=== PATIENT | female | born 1960 | race African-American/Black ===

== ENCOUNTER → 2018-06-25 16:36 | Outpatient (CLI) | payer OTHER, SELFPAY | PROVIDERS: PCP Family Medicine; Visit Provider Internal Medicine Cardiovascular Disease | DX: G47.33 Obstructive sleep apnea (adult) (pediatric) (principal); I10 Essential (primary) hypertension; R06.83 Snoring | CPT/HCPCS: 95806 ==

== ENCOUNTER → 2018-10-26 10:51 | Outpatient (CLI) | payer OTHER, SELFPAY ==
--- NOTE | 2018-10-26 10:53 | MM_ITS ---
MM Dig screening mamm BI w/CAD CAD Screening COMPARISON: Digital mammograms with CAD 10/06/2016 and 09/30/2015 INDICATION: There is no personal or family history of breast cancer TECHNIQUE: Standard CC and MLO images were obtained. R2 CAD reviewed. FINDINGS: Scattered fibroglandular densities are seen throughout both breasts. There is a stable benign-appearing nodular density near the axillary tail right breast. There is no suspicious lesion and there are no suspicious microcalcifications. IMPRESSION: Fibrofatty parenchyma with no suspicious lesion seen BI-RADS Category: 2 Benign Finding(s) RECOMMENDED FOLLOW-UP: 1YR - 1 YEAR FOLLOW-UP (A letter has been sent to the patient regarding results of the study.)
== END ==
PROVIDERS: PCP Family Medicine; Visit Provider Family Medicine
DX: Z12.31 Encounter for screening mammogram for malignant neoplasm of breast (principal)
CPT/HCPCS: 77067

== ENCOUNTER → 2019-08-08 09:38 | Outpatient (CLI) | payer OTHER, SELFPAY ==
--- NOTE | 2019-08-08 09:48 | XR_ITS ---
PROCEDURE: XR SHOULDER RT MIN 2V CLINICAL INDICATION: Rt shoulder pain COMPARISON: [id number] VIEWS from 03/22/2017 FINDINGS: There are osteoarthritic changes at the acromioclavicular joint with mild spurring along the inferior aspect of the distal chromium. There is subacromial stenosis new with mild osteoarthritic change of the glenohumeral joint. No fracture or dislocation. No lytic or blastic IMPRESSION: Change. Acromioclavicular arthropathy with subacromial stenosis and mild osteoarthritis of the glenohumeral joint Dictated by: Richard Gamble MD 08/08/2019 17:57 Electronically signed by Richard Gamble MD in [place] 08/08/2019 17:57
== END ==
PROVIDERS: PCP Family Medicine; Visit Provider Orthopaedic Surgery
DX: G89.29 Other chronic pain (principal); M25.511 Pain in right shoulder
CPT/HCPCS: 73030

== ENCOUNTER → 2019-08-15 10:08 | Outpatient (CLI) | payer OTHER, SELFPAY ==
--- NOTE | 2019-08-15 10:10 | MR_ITS ---
PROCEDURE: MR SHOULDER RT WO CON CLINICAL INDICATION: rule out rotator cuff tear Right shoulder pain, injury with pain COMPARISON: XR SHOULDER RT MIN 2V from 08/08/2019 TECHNIQUE: Routine multiplanar multi echo sequences are performed without gadolinium enhancement. FINDINGS: Motion artifact somewhat obscures fine detail. There is complete tear of the supraspinatus and infraspinatus tendons with retraction of the musculotendinous fibers with high riding humeral head, severe subacromial stenosis and mild osteoarthritic change of the acromioclavicular joint. Shoulder joint effusion is present. No obvious labral tear. Bicipital tendon is in place. The subscapularis and teres minor tendons are intact.. No fracture apparent. IMPRESSION: Complete tear of the supraspinatus and infraspinatus tendons with retraction of the musculotendinous fibers with shoulder joint effusion Dictated by: Richard Gamble MD 08/16/2019 16:29 Electronically signed by Richard Gamble MD in [place] 08/17/2019 07:10
== END ==
PROVIDERS: PCP Family Medicine; Visit Provider Orthopaedic Surgery
DX: M25.511 Pain in right shoulder (principal); G89.29 Other chronic pain; S49.91XA Unspecified injury of right shoulder and upper arm, initial encounter
CPT/HCPCS: 73221

== ENCOUNTER → 2019-10-08 15:07 | Outpatient (CLI) | payer OTHER, SELFPAY ==
[2019-10-08 15:35] LABS: Basophils % 0.7 % (0.1-2.0); Eosinophils # 0.2 K/mm3 (0.0-0.4); Eosinophils % 3.5 % (0.1-12.0); Hematocrit 38.6 % (37.0-47.0); Hemoglobin 12.6 g/dL (12.2-16.2); Lymphocytes # 1.6 K/mm3 (0.7-4.5); Lymphocytes % 27.2 % (10-50); Mean Corpuscular HGB Conc 32.7 g/dL (31.8-35.4); Mean Corpuscular Hemoglobin 28.7 pg (27.0-31.2); Mean Corpuscular Volume 87.7 fl (81-99); Mean Platelet Volume 7.8 fl (7.4-10.4); Monocytes # 0.3 K/mm3 (0.1-1.0); Monocytes % 4.8 % (1.7-9.3); Neutrophils # 3.7 K/mm3 (1.8-7.8); Neutrophils % 63.8 % (37.0-80.0); Platelet Count 360 K/mm3 (142-424); Red Cell Distribution Width 13.8 % (11.5-17.5); White Blood Count 5.8 K/mm3 (4.8-10.8)
[2019-10-08 17:36] LABS: Thyroid Stimulating Hormone 1.18 uIU/ml (0.358-3.740)
[2019-10-10 10:20] LABS: Creatinine, Urine 29.1 mg/dL (Not Estab.)
[2019-10-10 13:18] LABS: Microalbumin, Urine <3.0 ug/mL (Not Estab.)
== END ==
PROVIDERS: Visit Provider Family Medicine
DX: I10 Essential (primary) hypertension (principal); R68.89 Other general symptoms and signs
CPT/HCPCS: 36415; 82043; 82570; 84443; 85025

== ENCOUNTER → 2019-10-17 12:50 | Outpatient (CLI) | payer OTHER, SELFPAY ==
--- NOTE | 2019-10-17 12:52 | CT_ITS ---
PROCEDURE: CT HEART W CALCIUM SCORE CLINICAL HISTORY: HTN, HYPERCHOL;ESTEROLEMIA COMPARISON: CXR CHEST(2 VIEWS-NOT PORTABLE) from 01/13/2014 TECHNIQUE: Axial images obtained with sagittal and coronal reformats. All CT scans at the facility use one or more dose reduction, viz: automated exposure control, ma/kV adjustment per patient size (including targeted exams where dose is matched to indication, i.e. head), or iterative reconstruction technique. FINDINGS: Coronary artery calcium score is 3 indicating minimal plaque burden with low cardiovascular disease risk. Incidental findings include mild scarring or atelectatic changes in the right middle lobe in lung bases. Calcified nodes are present in the subcarinal area and right hilum. There are degenerative changes in the spine IMPRESSION: Minimal plaque burden with low cardiovascular disease risk Dictated by: Richard Gamble MD 10/18/2019 05:23 Electronically signed by Richard Gmable MD in [place] 10/18/2019 05:23
== END ==
PROVIDERS: PCP Family Medicine; Visit Provider Family Medicine
DX: Z13.6 Encounter for screening for cardiovascular disorders (principal); E78.00 Pure hypercholesterolemia, unspecified; I10 Essential (primary) hypertension
CPT/HCPCS: 75571

== ENCOUNTER → 2019-10-28 08:19 | Outpatient (CLI) | payer OTHER, SELFPAY ==
--- NOTE | 2019-10-28 08:23 | MM_ITS ---
PROCEDURE: MM DIG SCREENING MAMM BI W/CAD Patient Age:59Y CLINICAL INDICATION: SCREENING a no hormones but no new complaints. Noncontributory family history the. COMPARISON: DIGMAMMS MAMMOGRAM SCREEN-[employer] OPERATOR N/C from 01/26/2009 DIGMAMMS MAMMOGRAM SCREEN-GAS PLANT OPERATOR N/C from 03/12/2010 DMSB DIGITAL MAMM-SCREEN BILATERAL from 03/14/2011 DMDXUWAL DIG MAMM-DX UNIL LT W/ADD VIEW from 09/14/2011 DMSB DIGITAL MAMM-SCREEN BILATERAL from 09/12/2012 DMSB DIG MAMM-SCREEN BERONICA from 09/12/2013 DMSB DIG MAMM-SCREEN BERONICA from 09/24/2014 DMSB DIG MAMM-SCREEN BERONICA from 09/30/2015 DMSB DIG MAMM-SCREEN BERONICA from 10/06/2016 [facility] MM Dig screening mamm BI w/CAD from 10/26/2018 TECHNIQUE: Standard CC and MLO images were obtained. R2 CAD reviewed. Additional axillary CC views bilaterally., and additional MLO view right breast included FINDINGS: The minimal residual fibroglandular elements but overall moderate lower density breast. Similar architecture and appearance to previous studies with no dominant nor suspicious mass but no suspicious calcifications. Stable breast patterns were compared to multiple previous studies with no new areas of significant concern either breast. the CAD computer review highlights no areas of significant concern either Right breast stable intramammary node deep axillary right breast . Left breast no significant new findings Bilateral follow-up 1 year recommended IMPRESSION: Stable bilateral mammogram. A bilateral follow-up 1 year recommended BI-RAD Category: 1 Negative FOLLOW-UP: 1YR 1 Year Follow-up (A letter has been sent to the patient regarding results of the study.) Dictated by: Neftali Fiore MD 10/29/2019 08:43 Electronically signed by Neftali Fiore MD in [place] 10/29/2019 08:43
== END ==
PROVIDERS: PCP Family Medicine; Visit Provider Family Medicine
DX: Z12.31 Encounter for screening mammogram for malignant neoplasm of breast (principal)
CPT/HCPCS: 77067

== ENCOUNTER 2019-11-15 15:00 | Outpatient (RCR) | payer OTHER, SELFPAY ==
--- NOTE | 2019-08-23 09:51 | HMH.OTOPEV ---
OT Inpatient Evaluation Rehab OT Outpatient Eval Start: 08/23/19 09:39 Freq: Status: Active Protocol: Document 08/23/19 09:40 RMARSHALL (Rec: 08/23/19 09:51 [id number] Electronically Signed By Aldair Vuong OT 08/23/19 09:40 Outpatient Therapy Subjective History Subjective History Pt is a 58 year old female who reports to therapy for initial evaluation to right shoulder. Pt has been seen by ortho and had both x-rays and MRI completed to right shoulder. MRI showed a complete tear with retraction at the supraspinatus and infraspinatus. Pt does demonstrate with decreased AROM and strength at right shoulder. Pt will continue to be seen twice a week in order to address all deficits. Chief Complaint Pain,Stiff,Weakness Symptom Type Ache,Throb,Sharp Symptoms Relieved By Rest/Positioning Symptoms Aggravated By Physical Activity,Twisting, Lifting Prior Functional Limitations None Current Functional Limitations Reaching,Lifting,Sleeping, Recreation Activity Symptom Description Intermittent,Activity Dependent Level of pain today (0-10) 0 Pain scale - at its best (0-10) 0 Pain scale - at its worst (0-10) 5 Shoulder/Elbow Eval Shoulder Objective Measurements Shoulder ROM Right Shoulder Abduction Active Range of 80 degrees Motion (degrees) Shoulder Flexion Active Range of Motion 100 degrees (degrees) Query Text: Shoulder External Rotation Active Range 35 degrees of Motion (degrees) Shoulder Internal Rotation Active Range 40 degrees of Motion (degrees) pain with active ROM shoulder exam right standard pain with passive ROM shoulder exam right standard decreased ROM shoulder exam standard right Shoulder MMT Shoulder Abduction Strength Grade 3 Fair Shoulder Extension Strength Grade 3 Fair Shoulder Flexion Strength Grade 3 Fair Shoulder External Rotation Strength 3 Fair Grade Shoulder Internal Rotation Strength 3 Fair Grade Shoulder Strength Patient Testing Sitting Position Elbow Objective Measurements OT Outpatient Assessment Impairments Problems/Impairments Pal
--- NOTE | 2019-10-01 16:23 | HMH.RHREAS ---
Rehab Reassessment Rehab OP Re-assessment Start: 10/01/19 15:31 Freq: Status: Active Protocol: Document 10/01/19 15:31 KANDICE (Rec: 10/01/19 16:23 RMCHRISTINAHALL [id number]) Electronically Signed By Aldair Vuong OT 10/01/19 15:31 Rehab Re-assessment Subjective Subjective I do see a big difference in it. Objective Objective Notes Pt continutes to be seen twice a week in order to address all right shoulder deficits. Pt engages in AROM/AAROM/ Strengthening exercises each session. Pt is also passively ranged in supine in flexion, abduction, ER, and IR at each session. Modalities are provided in order to decrease pain/inflammation. Assessment Progress Assessment Slower Than Expected Assessment Notes Pt does demonstrate improvement in AROM at right shoulder. However, strength remains fairly the same since initial evaluation. Pt does inform thearpy she is able to complete several different daily tasks that she was unable to complete prior to beginning therapy. Current R shoulder AROM Flex: 110 degrees Abd: 100 degrees ER: 58 degrees IR: 60 degrees Current MMT R shoulder Flex: 3 Abd: 3 ER: 3 IR: 3 Patient goals met N/A Goals Not Met Short term goals and long term care administrator goals Revised Goals Continue progressing towards all goals written on initial evaluation. Plan Plan Continue with OT plan of care at this time Frequency of Therapy 2x's a week Duration of therapy 4 more weeks Time and Billing Re-Eval Time 15 Re-Eval Billing Units 1 PHYSICIAN CERTIFICATION: I certify the specified therapy services for Leela Oneil are required, authorized, and reviewed every
--- NOTE | 2019-11-06 11:54 | HMH.RHREAS ---
Rehab Reassessment Rehab OP Re-assessment Start: 10/01/19 15:31 Freq: Status: Active Protocol: Document 11/06/19 10:30 RMDANIEL (Rec: 11/06/19 11:53 RMARSHALL [id number]) Electronically Signed By Aldair Vuong OT 11/06/19 10:30 Rehab Re-assessment Subjective Subjective I do see some improvements in what I can do. Objective Objective Notes Pt continutes to be seen twice a week in order to address all right shoulder deficits. Pt engages in AROM/AAROM/ Strengthening exercises each session. Pt is also passively ranged in supine in flexion, abduction, ER, and IR at each session. Modalities are provided in order to decrease pain/inflammation. Assessment Progress Assessment Slower Than Expected Assessment Notes Pt does demonstrate improvement in AROM and strength at right shoulder. However, both AROM and strength remain limited. Current R shoulder AROM/MMT Flex: 120 degrees; 4 Abd: 110 degrees; 4- ER: 58 degrees; 4- IR: 65 degrees; 4- Current MMT R shoulder Flex: 3 Abd: 3 ER: 3 IR: 3 Patient goals met N/A Goals Not Met Short term goals and senior care goals Revised Goals Continue progressing towards all goals written on initial evaluation. Plan Plan Continue with OT plan of care at this time Frequency of Therapy 2x's a week Duration of therapy 4 more weeks Time and Billing Re-Eval Time 15 Re-Eval Billing Units 1 PHYSICIAN CERTIFICATION: I certify the specified therapy services for Leela Oneil are required, authorized, and reviewed every 30 days.
== END 2019-11-15 15:05 | disposition home or self-care (01) ==
LOC: OT 15:00
PROVIDERS: PCP Family Medicine; Visit Provider Orthopaedic Surgery
DX: M75.101 Unspecified rotator cuff tear or rupture of right shoulder, not specified as traumatic (principal)
CPT/HCPCS: 97014; 97110; 97140; 97164; 97165; G0283

== ENCOUNTER 2020-04-15 14:35 | Emergency (ER) | payer OTHER, SELFPAY ==
[2020-04-15 14:36] VITALS: BP 134/67; PULSE 54; RESP 18; TEMP 36.3; O2SAT 100; BMI 29.4
--- NOTE | 2020-04-15 15:02 | HMH.EDUTC ---
[facility] Disposition Clinical Impression: Foreign body in ear Qualifiers: Encounter type: initial encounter Laterality: right Qualified Code(s): T16.1XXA - Foreign body in right ear, initial encounter Disposition: Home, Self-Care Condition on Discharge: Good Additional Instructions: Do not stick anything in your ear to try to removed object *MAKE SURE THAT YOU HAVE NOTHING TO EAT OR DRINK AFTER MIDNIGHT AND BE AT PRE OP TOMORROW 04/16/[address] CANALES TO REMOVE THE OBJECT *Over the counter motrin and/or Tylenol as directed on package for pain or fever Straight to ER if any life threatening symptoms Referrals: Giovany Kennedy MD [Primary Care Provider] - As needed Donnell Canales MD [Staff Physician] - 04/16/20 11:00 am (NPO after midnight and be at Pre Op for removal of foreign body from right ear) Time of Disposition: 15:12 Medical Decision Making - Alexander Inquiry Pt receiving controlled substance: No Alexander was queried for this patient: No Vital Signs: 04/15/20 14:36 Temperature 97.3 F L Temperature Source Oral Pulse Rate [Right] 54 L Respiratory Rate 18 Blood Pressure [Right Arm] 134/67 Blood Pressure Mean [Right Arm] 89 02 Sat by Pulse Oximetry 100 - Physician Consults Physician Consulted: Parker Time: 15:07 Reason -: ENT Eval/Care Comment/Response: Spoke with Dr Canales about foreign body in right eat that appears to be right at the TM and he recommended patient NPO after midnight and be at Pre Op at 11am tomorrow for removal Spoke with patient and she agreed [facility] HPI - General Stated complaint: foreign object in ear Time Seen by Provider: 04/15/20 15:02 Mode of Arrival: Ambulatory Limitations: No Limitations Description of Symptoms (Recalled from Triage Doc. by RN): Foreign body in right ear. HEENT Symptoms (Recalled from RN notes): Yes Resp Symptoms (Recalled from RN notes): No Skin Symptoms (Recalled from RN notes): No MS Symptoms (Recalled from RN notes): No Functional Status (Recalled from RN notes): na - History of Present Illness Provider Complaint: Patient states that she was using her ear buds and when she removed them from her right ear she noticed that a piece of the rubber tip had broken off and she thinks it may be in her ear States that she didnt try to remove it but she came in to see if it was still in there or had fallen somewhere else - Related Data Home Medications Medication Instructions Recorded Confirmed plecanatide 3 mg tablet 3 mg PO DAILY PRN 06/27/19 11/26/19 Previous Rx's Medication Instructions Recorded lisinopril 20 1 tab PO DAILY #90 tab 09/05/19 mg-hydrochlorothiazide 12.5 mg tablet Allergies Allergy/AdvReac Type Severity Reaction Status Date / Time orphenadrine [From NORFLEX] Allergy Intermediate I-RASH Verified 11/26/19 09:13 - Worker's Comp Is this a Worker's Comp case?: No [facility] History - Hepatitis A Screen Drug use history?: No High risk sexual behaviors?: No History of sexually transmitted infection?: No Currently employed?: No Childcare worker?: No Do you have indoor plumbing?: Yes Do you have electricity?: Yes Attestation statement:: This patient has been screened for Hepatitis A risk factors. I have reviewed the patient's past medical history: Yes Medical History: Reports:: Hypertension Denies:: Cancer, Diabetes Mellitus Type 1, Diabetes Mellitus Type 2, Internal Pacemaker, Lung Disease, MRSA, Seizures Other Medical History: Denies: Blood Transfusion Reaction Laterality Cases: Bilateral: Other Other Surgeries: Yes: Colonoscopy, Hysterectomy-Total, Other (R ORIF). No: Pacemaker Amputation: No Fractures: Yes (RIGHT ANKLE) - Social History Smoking Status: Never smoker Alcohol Intake: never Alcohol Intake Frequency:: other Substance Use Type: denies use Occupational Status: retired Housing: house Household Members: none Family Hx:: Hypertension ROS Obtained: Yes All systems reviewed & no additional complaints, Ye
[2020-04-15 15:23] VITALS: BP 132/85; PULSE 80; RESP 20; TEMP 36.8; O2SAT 98
== END 2020-04-15 15:27 | disposition home or self-care (01) ==
PROVIDERS: Emergency Provider Nurse Practitioner; PCP Family Medicine
DX: T16.1XXA Foreign body in right ear, initial encounter (principal); I10 Essential (primary) hypertension; Z90.79 Acquired absence of other genital organ(s); Z88.8 Allergy status to other drugs, medicaments and biological substances
CPT/HCPCS: 99201

== ENCOUNTER 2020-04-16 11:01 | Day surgery (SDC) | payer OTHER, SELFPAY ==
[2020-04-16] VITALS (9 sets, daily range): BP systolic 88–131; BP diastolic 51–78; PULSE 39–58; RESP 16–18; TEMP 36.1–36.6; O2SAT 93–100; BMI 31.6; BMI 29.4
[2020-04-16 12:00] LABS: Coronavirus 19 IgG Antibody Negative (Negative); Coronavirus 19 IgM Antibody Negative (Negative)
--- NOTE | 2020-04-16 12:15 | P.PN_ITS ---
[facility] Anesthesia Checklist - Patient Identification Patient Identification: Arm Band - Structural Data Admitted From: Home Planned Operative Procedure/s: removal of fb right ear, removal of impacted cerumen left ear Consent for Planned Operative Procedure(s) Verified: Yes Verified Documents: Surgical Consent, History and Physical - NPO Status Verified Time NPO: 00:00 - Additional verifications Anesthesia Reactions: No Hx Blood Transfusions: No Blood Transfusion Reaction: No - Airway Assessment C-Spine Mobility Assessed: Yes (mp2) TMJ Mobility Assessed: Yes Dentition: Good Dentition - Neurological Assessment Level of Consciousness: Awake, Alert - Anesthesia Plan Anesthesia Risk discussed: Yes Anesthesia Plan: Verified ASA Class: II Anesthesia Type: General [facility] History I have reviewed the patient's past medical history: Yes Medical History: Reports:: Hypertension Denies:: Cancer, Diabetes Mellitus Type 1, Diabetes Mellitus Type 2, Internal Pacemaker, Lung Disease, MRSA, Seizures *Have you ever received a pneumonia vaccine?: No *Have you received a flu vaccine this season?: Yes Other Medical History: Denies: Blood Transfusion Reaction Anesthesia experience/problems:: nac Laterality Cases: Bilateral: Other Other Surgeries: Yes: Colonoscopy, Hysterectomy-Total, Other (R ORIF). No: Pacemaker Amputation: No Fractures: Yes (RIGHT ANKLE) - *Social History Educational Level: Completed College Smoking Status: Never smoker Alcohol Intake: never Alcohol Intake Frequency:: other Substance Use Type: denies use *Occupational Status:: retired Housing: house Household Members: none *Travel in the last 8 weeks: None Family Hx:: No significant family history
--- NOTE | 2020-04-16 12:16 | HMH.ANESI ---
[facility] Anesthesia Record Part I Intake, IV Amount: 300 Estimated blood loss (mL): 0 Urine output (mL): 0 Blood Pressure: 90/51 SaO2: 95 Pulse Rate: 58 Respiratory Rate: 16 Temperature: 97.5 F Patient is:: Drowsy, Stable Stable to PACU at:: 12:10
--- NOTE | 2020-04-16 17:03 | P.OP_ITS ---
Date of procedure: 04/16/20 Pre-op Diagnosis:: 1. Impacted foreign body right ear 2. Impacted cerumen left ear Post-op Diagnosis:: same Procedure performed:: 1. Removal of foreign body impacted in right ear under general anesthetic 2. Removal of impacted cerumen left ear Surgeon:: Donnell Canales MD TELEPHONE OPERATOR CHIEF:: Jose G Cheek Anesthesia: GETA Estimated blood loss (mL): 0 Operative findings:: same Operative note:: With the patient under general anesthesia, the right ear was prepped and draped. Using the operating microscope for all the procedure the right ear was examined there was a portion of a ear plug impacted in the right ear and wedged onto the tympanic membrane and into the anterior meatal complex probably by attempts previously to have it removed by irrigation. Using the Douglas needle it was possible to disimpact the foreign body and then it was grasped with alligator forceps and removed atraumatically. Tympanic membrane was not damaged in any way and there was no bleeding, no eardrops were used. Left ear was then prepped and draped, there was a large amount of impacted cerumen in the left ear which was removed with a curette, there was no bleeding, the ear was irrigated and there was no need to use any drops. Patient was sent to recovery in good general condition. Condition: stable Disposition: PACU Complications:: none
--- NOTE | 2020-04-17 09:54 | P.PN_ITS ---
[facility] Anesthesia Record Part II Discharge Time: 12:40 Destination: Surgical Day Care (OP Surgery) PACU nurse assessment reviewed?: Yes Patient Condition:: Good Anesthesia Complications:: None Swallowing reflex intact?: Yes Cyanosis?: No Blood Pressure: 95/59 Pulse Rate: 53 Temperature: 97.5 F Mental Status: Alert & Oriented Pain level:: 0 Nausea and/or vomitting:: None Intake, IV Amount: 0
[2020-04-17 09:55] VITALS: BP 95/59; PULSE 53; TEMP 36.4
== END 2020-04-16 13:10 | disposition home or self-care (01) ==
PROVIDERS: PCP Family Medicine; Visit Provider Otolaryngology
PROC: (CPT 69205; principal; 2020-04-16 09:30)
DX: T16.1XXA Foreign body in right ear, initial encounter (principal); H61.22 Impacted cerumen, left ear; I10 Essential (primary) hypertension; Z90.710 Acquired absence of both cervix and uterus; E78.5 Hyperlipidemia, unspecified; Z88.8 Allergy status to other drugs, medicaments and biological substances; Z79.899 Other long term (current) drug therapy
CPT/HCPCS: 69205; 69210; 86328; 96374; 96375; J2405

== ENCOUNTER → 2020-05-06 08:14 | Outpatient (CLI) | payer OTHER, SELFPAY ==
[2020-05-06 09:44] LABS: Alanine Aminotransferase 15 U/L (12-78); Albumin Level 4.2 g/dl (3.5-5.0); Alkaline Phosphatase 117 U/L (38-126); Aspartate Amino Transferase 30 U/L (14-36); Bilirubin,Direct 0.1 mg/dl (0.0-0.4); Bilirubin,Indirect 0.5 mg/dL (0.0-0.9); Bilirubin,Total 0.6 mg/dl (0.2-1.3); Bilirubin,Unconjugated 0.4 mg/dL (0.0-1.1); Blood Urea Nitrogen 22 mg/dl (7-17); Calcium 9.7 mg/dl (8.4-10.2); Carbon Dioxide 27 mmol/L (22.0-30.0); Chloride 101 mmol/L (98-107); Chol/HDL Ratio 3.3 (1-3.5); Cholesterol 221 mg/dl (140-200); Estimated Glomerular Filt Rate 85 ml/min (>60); GFR (African American) 103 ML/MIN (>60); Glucose 95 mg/dl (74-100); HDL Cholesterol 66 mg/dl (40-60); Sodium 137 mmol/L (136-145); Triglycerides 73 mg/dl (30-150); VLDL Cholesterol 15 mg/dL (0-40)
[2020-05-06 09:56] LABS: Direct LDL Cholesterol 119.94 mg/dL (100-129)
== END ==
PROVIDERS: Visit Provider Physician Assistant
DX: I10 Essential (primary) hypertension (principal); E78.5 Hyperlipidemia, unspecified; Z79.899 Other long term (current) drug therapy
CPT/HCPCS: 36415; 80048; 80061; 80076

== ENCOUNTER → 2020-07-08 09:28 | Outpatient (CLI) | payer OTHER, SELFPAY ==
[2020-07-08 10:44] LABS: Alanine Aminotransferase 30 U/L (12-78); Aspartate Amino Transferase 33 U/L (14-36); Bilirubin,Unconjugated 0.4 mg/dL (0.0-1.1)
[2020-07-08 10:45] LABS: Albumin Level 3.5 g/dl (3.5-5.0); Alkaline Phosphatase 95 U/L (38-126); Bilirubin,Direct 0.1 mg/dl (0.0-0.4); Bilirubin,Indirect 0.4 mg/dL (0.0-0.9); Bilirubin,Total 0.5 mg/dl (0.2-1.3); Chol/HDL Ratio 2.8 (1-3.5); Cholesterol 143 mg/dl (140-200); HDL Cholesterol 52 mg/dl (40-60); Total Protein,Serum 6.9 g/dl (6.3-8.2); Triglycerides 59 mg/dl (30-150); VLDL Cholesterol 12 mg/dL (0-40)
[2020-07-08 10:56] LABS: Direct LDL Cholesterol 73.79 mg/dL (100-129)
== END ==
PROVIDERS: Visit Provider Internal Medicine Cardiovascular Disease
DX: E78.49 Other hyperlipidemia (principal); I10 Essential (primary) hypertension; R00.1 Bradycardia, unspecified
CPT/HCPCS: 36415; 80061; 80076

== ENCOUNTER → 2020-10-29 09:52 | Outpatient (CLI) | payer OTHER, SELFPAY ==
--- NOTE | 2020-10-29 09:54 | MM_ITS ---
PROCEDURE: MM DIG SCREENING MAMM BI W/CAD Referring Doctor: Giovany Kennedy Patient Age:60Y CLINICAL INDICATION: SCREENING 60-year-old no hormones, no new complaints. Family history. Noncontributory COMPARISON: MG DMDXUWAL DIG MAMM-DX UNIL LT W/ADD VIEW from 09/14/2011 MG DMSB DIGITAL MAMM-SCREEN BILATERAL from 09/12/2012 MG DMSB DIG MAMM-SCREEN BERONICA from 09/12/2013 MG DMSB DIG MAMM-SCREEN BERONICA from 09/24/2014 MG DMSB DIG MAMM-SCREEN BERONICA from 09/30/2015 MG DMSB DIG MAMM-SCREEN BERONICA from 10/06/2016 MG [facility] MM Dig screening mamm BI w/CAD from 10/26/2018 MG MM DIG SCREENING MAMM BI W/CAD from 10/28/2019 TECHNIQUE: Standard CC and MLO images were obtained. R2 CAD reviewed. Bilateral digital breast tomosynthesis included. FINDINGS: Moderate residual fibroglandular elements most evident towards upper outer quadrant both breast . No new dominant or suspicious mass. No suspicious calcifications.. Stable architecture. Upper normal diffuse skin thickness both breast appears to be believe merely due to settings and different technique the new unit and not felt to be of significance Right breast-no new areas of significant concern Stable mild asymmetric area of fibroglandular density at the superior right breast is unchanged since multiple previous studies Left breast-no new areas of concern. Stable Bilateral follow-up 1 year of recommended and should be encouraged/emphasized to further confirm ongoing stability IMPRESSION: No significant new findings. Overall stable mammogram. Moderate breast density bilaterally Very slight diffuse thicker appearance skin bilaterally versus prior studies,, merely manifestation of are new mammography unit technique and settings--not felt to be of significance Bilateral follow-up 1 year recommended and should be encouraged/emphasized BI-RAD Category: 2 Benign Finding(s) FOLLOW-UP: 1YR 1 Year Follow-up (A letter has been sent to the patient regarding results of the study.) Dictated by: Neftali Fiore MD 11/05/2020 11:49 Neftali Fiore MD in [place] 11/05/2020 11:49
== END ==
PROVIDERS: PCP Family Medicine; Visit Provider Family Medicine
DX: Z12.31 Encounter for screening mammogram for malignant neoplasm of breast (principal)
CPT/HCPCS: 77063; 77067

== ENCOUNTER → 2021-05-13 07:09 | Outpatient (CLI) | payer OTHER, SELFPAY ==
[2021-05-13 07:35] LABS: Basophils % 0.8 % (0.1-2.0); Eosinophils # 0.1 K/mm3 (0.0-0.4); Eosinophils % 2.1 % (0.1-12.0); Hematocrit 35.3 % (37.0-47.0); Hemoglobin 11.7 g/dL (12.2-16.2); Lymphocytes # 1.6 K/mm3 (0.7-4.5); Lymphocytes % 29.7 % (10-50); Mean Corpuscular HGB Conc 33.1 g/dL (31.8-35.4); Mean Corpuscular Hemoglobin 27.5 pg (27.0-31.2); Mean Corpuscular Volume 83.1 fl (81-99); Mean Platelet Volume 7.8 fl (7.4-10.4); Monocytes # 0.4 K/mm3 (0.1-1.0); Monocytes % 6.5 % (1.7-9.3); Neutrophils # 3.3 K/mm3 (1.8-7.8); Neutrophils % 60.9 % (37.0-80.0); Platelet Count 288 K/mm3 (142-424); Red Blood Count 4.25 M/mm3 (4.20-5.40); Red Cell Distribution Width 16.3 % (11.5-17.5); White Blood Count 5.3 K/mm3 (4.8-10.8)
[2021-05-13 07:53] LABS: Alanine Aminotransferase 58 U/L (12-78); Albumin Level 3.8 g/dl (3.5-5.0); Albumin/Globulin Ratio 1.2 (1.1-1.8); Alkaline Phosphatase 128 U/L (38-126); Anion Gap 10.2 mEq/L (5-15); Aspartate Amino Transferase 52 U/L (14-36); Bilirubin,Direct 0.4 mg/dl (0.0-0.4); Bilirubin,Indirect 0.1 mg/dL (0.0-0.9); Bilirubin,Total 0.5 mg/dl (0.2-1.3); Blood Urea Nitrogen 21 mg/dl (7-17); Calcium 8.9 mg/dl (8.4-10.2); Carbon Dioxide 31 mmol/L (22.0-30.0); Chloride 105 mmol/L (98-107); Chol/HDL Ratio 2.1 (1-3.5); Cholesterol 155 mg/dl (140-200); Estimated Glomerular Filt Rate 85 ml/min (>60); GFR (African American) 103 ML/MIN (>60); Globulin 3.2 g/dL (1.3-3.2); Glucose 91 mg/dl (74-100); HDL Cholesterol 73 mg/dl (40-60); Potassium 4.2 mmoL/L (3.5-5.1); Sodium 142 mmol/L (136-145); Triglycerides 44 mg/dl (30-150); VLDL Cholesterol 9 mg/dL (0-40)
[2021-05-13 08:05] LABS: Direct LDL Cholesterol 63.45 mg/dL (100-129)
== END ==
PROVIDERS: Visit Provider Internal Medicine Cardiovascular Disease
DX: R00.1 Bradycardia, unspecified (principal); I10 Essential (primary) hypertension; E78.5 Hyperlipidemia, unspecified
CPT/HCPCS: 36415; 80053; 80061; 80076; 85025

== ENCOUNTER → 2021-10-19 17:35 | Outpatient (CLI) | payer OTHER, SELFPAY | PROVIDERS: PCP Family Medicine; Visit Provider Nurse Practitioner | DX: Z20.822 Contact with and (suspected) exposure to COVID-19 (principal) | CPT/HCPCS: C9803; U0003; U0005 ==

== ENCOUNTER → 2021-11-01 08:29 | Outpatient (CLI) | payer OTHER, SELFPAY ==
--- NOTE | 2021-11-01 08:32 | MM_ITS ---
PROCEDURE INFORMATION: Exam: MG Bilateral Screening 3D Mammography Exam date and time: 11/01/2021 8:32 AM Age: 61 years old Clinical indication: Encounter for screening mammogram for malignant neoplasm of breast TECHNIQUE: Imaging protocol: Bilateral screening tomosynthesis and 2D mammography including computer-aided detection (CAD) when performed. COMPARISON: 1. MG MM DIG SCREENING MAMM BI W/CAD 10/29/2020 10:03 AM 2. MG MM DIG SCREENING MAMM BI W/CAD 10/28/2019 8:41 AM FINDINGS: MAMMOGRAPHY: Breast composition: The breast tissue is composed of scattered areas of fibroglandular density. Mass: None. Architectural distortion: None. Calcifications: No suspicious calcifications. Asymmetric density: None. Skin thickening: None. Axillary adenopathy: None. IMPRESSION: No mammographic evidence of malignancy. Annual screening is recommended unless otherwise clinically indicated. ASSESSMENT: BI-RADS Category 1: Negative
== END ==
PROVIDERS: PCP Family Medicine; Visit Provider Family Medicine
DX: Z12.31 Encounter for screening mammogram for malignant neoplasm of breast (principal)
CPT/HCPCS: 77063; 77067

== ENCOUNTER 2022-08-31 08:52 | Day surgery (SDC) | payer OTHER, SELFPAY ==
[2022-08-08 10:42] VITALS: BMI 28.1
[2022-08-31 09:23] VITALS: BP 166/72; PULSE 53; RESP 18; TEMP 36.4; O2SAT 97
--- NOTE | 2022-08-31 10:11 | P.PN_ITS ---
PFSH PFS Medical History History of cataract Hx of fracture of ankle Surgical History Hx of hysterectomy Family History Father Family history of cancer Other Family history of diabetes mellitus Family history of high cholesterol Family history of hypertension Social History Smoking Status: Never smoker second hand exposure: No alcohol intake: never substance use type: denies use current occupational status: employed and disabled Travel in the last 8 weeks: Inside the [place] household members: none housing: house lives independently: Yes marital status: single current occupational exposures/hazards: No caffeine: Yes special magdy needs: No agree to transfusion: No do you feel safe at home: Yes victim of physical abuse: No victim of emotional abuse: No victim of sexual abuse: No would you like helpful sources: No [facility] Anesthesia Checklist Patient Identification Patient Identification: Arm Band Structural Data Admitted From: Home Planned Operative Procedure/s: Colonoscopy Consent for Planned Operative Procedure(s) Verified: Yes Verified Documents: Surgical Consent and History and Physical NPO Status Verified Time NPO: 00:00 Additional verifications Anesthesia Reactions: No Hx Blood Transfusions: No Blood Transfusion Reaction: No Airway Assessment C-Spine Mobility Assessed: Yes TMJ Mobility Assessed: Yes Dentition: Good Dentition Neurological Assessment Level of Consciousness: Awake and Alert Anesthesia Plan Anesthesia Risk discussed: Yes Anesthesia Plan: Verified ASA Class: II Anesthesia Type: MAC
[2022-08-31 10:15] VITALS: O2SAT 100
[2022-08-31 10:37] VITALS: BP 124/82; PULSE 53; RESP 18; TEMP 36.1; O2SAT 100
--- NOTE | 2022-08-31 10:37 | HMH.SCOPE ---
Procedure: Date: 08/31/22 Patient Date of :: 1960 Procedure Performed:: Colonoscopy Indications:: History of colon polyps Performing Provider:: Adrian Ruiz MD Referring Provider:: Patrick Kennedy MD Sedation:: See RN notes Procedure:: After placing the patient in the left lateral decubitus position, the colonoscopy was gently inserted into the rectum and under direct visualization advanced to the cecum which was identified by transillumination in the right lower quadrant, identification of the ileocecal valve, appendiceal orifice, and cecal strap. Color, texture, mucosa, and anatomy of the colon were carefully examined with the scope. Findings:: Anal canal: normal Rectum: internal hemorrhoids Sigmoid colon: fair bowel preparation Descending colon: fair bowel preparation Splenic flexure: normal Transverse colon: normal without polyps or inflammatory changes Hepatic flexure: fair bowel preparation Ascending colon: fair bowel preparation Cecum: normal Terminal ileum: not visualized Impression: Normal appearing colon Bowel preparation was fair in quality (brown substance adherent to mucosa in areas of colon, partially digested food material) Recommendations:: Repeat colonoscopy in 3 years Complications:: none Estimated blood obtained (mL): 0
[2022-08-31 10:47] VITALS: BP 134/87; PULSE 41; RESP 18; O2SAT 99
[2022-08-31 10:57] VITALS: BP 136/82; PULSE 40; RESP 18; O2SAT 99
[2022-08-31 11:09] VITALS: BP 137/83; PULSE 38; RESP 18; O2SAT 99
== END 2022-08-31 11:11 | disposition home or self-care (01) ==
PROVIDERS: PCP Family Medicine; Visit Provider Internal Medicine
PROC: 0DJD8ZZ Inspection of Lower Intestinal Tract, Via Natural or Artificial Opening Endoscopic (ICD-10-PCS; CPT 45378; principal; 2022-08-31 10:00)
DX: Z12.11 Encounter for screening for malignant neoplasm of colon (principal); K64.8 Other hemorrhoids; Z86.010 Personal history of colon polyps
CPT/HCPCS: 45378

== ENCOUNTER → 2022-11-10 08:22 | Outpatient (CLI) | payer OTHER, SELFPAY ==
--- NOTE | 2022-11-10 08:26 | MM_ITS ---
PROCEDURE INFORMATION: Exam: MG Bilateral Screening 3D Mammography Exam date and time: 11/10/2022 8:33 AM Age: 62 years old Clinical indication: Screening examination TECHNIQUE: Imaging protocol: Bilateral Screening tomosynthesis and 2D mammography including computer-aided detection (CAD) when performed. COMPARISON: 1. MG MM DIG SCREENING MAMM BI W/CAD 11/01/2021 8:48 AM 2. MG MM DIG SCREENING MAMM BI W/CAD 10/29/2020 10:03 AM FINDINGS: MAMMOGRAPHY: Breast composition: There are scattered areas of fibroglandular density. Mass: None. Architectural distortion: None. Calcifications: No suspicious calcifications. Asymmetric density: None. Skin thickening: None. Axillary adenopathy: None. IMPRESSION: No mammographic evidence of malignancy. Annual screening is recommended unless otherwise clinically indicated. ASSESSMENT: BI-RADS Category 1: Negative
== END ==
PROVIDERS: PCP Family Medicine; Visit Provider Family Medicine
DX: Z12.31 Encounter for screening mammogram for malignant neoplasm of breast (principal)
CPT/HCPCS: 77063; 77067

== ENCOUNTER 2023-12-11 07:56 | Outpatient (CLI) | payer MEDICARE, SELFPAY ==
--- NOTE | 2023-12-11 08:04 | MM_ITS ---
PROCEDURE INFORMATION: Exam: MG Bilateral Screening 3D Mammography Exam date and time: 12/11/2023 7:55 AM Age: 63 years old Clinical indication: Screening examination TECHNIQUE: Imaging protocol: Bilateral Screening tomosynthesis and 2D mammography including computer-aided detection (CAD) when performed. COMPARISON: 1. MG MM DIG SCREENING MAMM BI W/CAD 11/10/2022 8:33 AM 2. MG MM DIG SCREENING MAMM BI W/CAD 11/01/2021 8:48 AM 3. MG MM DIG SCREENING MAMM BI W/CAD 10/29/2020 10:03 AM FINDINGS: MAMMOGRAPHY: Breast composition: There are scattered areas of fibroglandular density. Mass: No suspicious masses. Architectural distortion: No suspicious distortion. Calcifications: No suspicious calcifications. Asymmetric density: None. Skin thickening: None. Axillary adenopathy: None. IMPRESSION: No mammographic evidence of malignancy. Annual screening is recommended unless otherwise clinically indicated. ASSESSMENT: BI-RADS Category 1: Negative
== END 2023-12-11 23:59 ==
PROVIDERS: PCP Family Medicine; Visit Provider Family Medicine
DX: Z12.31 Encounter for screening mammogram for malignant neoplasm of breast (principal)
CPT/HCPCS: 77063; 77067

== ENCOUNTER 2024-02-20 09:05 | Outpatient (POV) | payer MEDICARE, SELFPAY | END 2024-02-20 23:59 | disposition home or self-care (01) | LOC: SC 09:06 | PROVIDERS: PCP Family Medicine; Visit Provider Dermatology | DX: Z00.00 Encounter for general adult medical examination without abnormal findings (principal) ==

== ENCOUNTER 2024-08-08 09:06 | Outpatient (CLI) | payer MEDICARE, SELFPAY ==
--- NOTE | 2024-08-08 09:12 | XR_ITS ---
FINAL REPORT CLINICAL HISTORY: right shoulder pain COMPARISON: 08/08/2019 FINDINGS: RIGHT SHOULDER Two views demonstrate no acute fracture or dislocation. There are mild degenerative changes. The visualized bony structures are well aligned. No soft tissue abnormality is seen. IMPRESSION: No acute process, stable exam. Reviewed, Interpreted and Dictated by Michael Correa III, MD Transcribed by Christina Baugh Authenticated and [facility][1]
== END 2024-08-08 23:59 | disposition home or self-care (01) ==
LOC: RAD 09:07
PROVIDERS: PCP Family Medicine; Visit Provider Physician Assistant Surgical
DX: M25.511 Pain in right shoulder (principal)
CPT/HCPCS: 73030

== ENCOUNTER 2024-09-19 14:52 | Outpatient (CLI) | payer MEDICARE, SELFPAY ==
--- NOTE | 2024-09-19 15:00 | XR_ITS ---
FINAL REPORT CLINICAL HISTORY: hip pain COMPARISON: None FINDINGS: RIGHT HIP Two views of the right hip demonstrate no acute fracture or dislocation. There is mild sclerosis of the symphysis pubis. The visualized bony structures are well aligned. No soft tissue abnormality is seen. IMPRESSION: No acute bony abnormality identified. Reviewed, Interpreted and Dictated by Raulito Salas MD Transcribed by Arin Boggs Authenticated and [facility]
--- NOTE | 2024-09-19 15:00 | XR_ITS ---
FINAL REPORT TECHNIQUE: 5 views CLINICAL HISTORY: pain COMPARISON: None FINDINGS: LUMBAR SPINE: AP lateral and oblique views of the lumbar spine were obtained. There is advanced disc space narrowing present at the L4-5 level. There is grade 1 spondylolisthesis of L4 on L5. There is moderate facet sclerosis involving the lower lumbar facets. There is a mild convex curvature of the lower lumbar spine to the patient's right. IMPRESSION: Advanced degenerative narrowing of the L4-5 disc with grade 1 spondylolisthesis of the L4-5 level. Moderate facet sclerosis of the lower lumbar spine. Mild convex curvature of the lumbar spine apex to the patient's right. Reviewed, Interpreted and Dictated by Raulito Salas MD Transcribed by Arin Boggs Authenticated and [facility]
--- NOTE | 2024-09-19 15:00 | XR_ITS ---
FINAL REPORT TECHNIQUE: 4 views left femur CLINICAL HISTORY: hip pain COMPARISON: None FINDINGS: LEFT FEMUR: 4 images of the left femur were obtained. There is no evidence of fracture or dislocation. There is mild degenerative narrowing of both the medial and lateral compartments of the left knee. There is no soft tissue abnormality identified. IMPRESSION: No acute bony abnormality. Mild degenerative narrowing of the medial and lateral compartments of the left knee. Reviewed, Interpreted and Dictated by Raulito Salas MD Transcribed by Arin Boggs Authenticated and [facility]
--- NOTE | 2024-09-19 15:00 | XR_ITS ---
FINAL REPORT TECHNIQUE: Right femur 4 views CLINICAL HISTORY: pain COMPARISON: None FINDINGS: RIGHT FEMUR: 4 images of the right femur were obtained. There is no evidence of fracture or dislocation. There is mild narrowing of the medial and lateral compartments of the right knee. There is no soft tissue abnormality identified. IMPRESSION: No acute bony abnormality. Mild degenerative narrowing of the medial and lateral compartments of the right knee. Reviewed, Interpreted and Dictated by Raulito Salas MD Transcribed by Arin Boggs Authenticated and [facility]
--- NOTE | 2024-09-19 15:00 | XR_ITS ---
FINAL REPORT CLINICAL HISTORY: PAIN IN THE BUTTOCK COMPARISON: None FINDINGS: RIGHT HIP 3 views of the right hip demonstrate no acute fracture or dislocation. The joint spaces appear normal. There is bony sclerosis involving the symphysis pubis. The visualized bony structures are well aligned. No soft tissue abnormality is seen. IMPRESSION: No acute bony abnormality. Reviewed, Interpreted and Dictated by Raulito Salas MD Transcribed by Arin Boggs Authenticated and [facility]
== END 2024-09-19 23:59 | disposition home or self-care (01) ==
LOC: RAD 14:55
PROVIDERS: PCP Family Medicine; Visit Provider Physician Assistant
DX: M79.18 Myalgia, other site (principal)
CPT/HCPCS: 72110; 73502; 73552

== ENCOUNTER 2024-10-08 09:23 | Day surgery (SDC) | payer MEDICARE, OTHER, SELFPAY ==
[2024-10-07 14:43] VITALS: BMI 29.2
[2024-10-08 09:49] VITALS: BP 121/78; PULSE 43; RESP 17; TEMP 37; O2SAT 98
[2024-10-08] MEDS: PHENYLEPHRINE 2.5% OPHTH SOLN 2ML OP (09:57)
[2024-10-08] MEDS: TETRACAINE 0.5% OPTH SOL 15ML OP (09:57)
[2024-10-08] MEDS: APRACLONIDINE 0.5% OPHTH SOLN 5ML OP (09:57)
[2024-10-08] MEDS: TROPICAMIDE 1% OPTH SOLN 2ML OP (09:58)
== END 2024-10-08 10:50 | disposition home or self-care (01) ==
LOC: OUTP 09:24
PROVIDERS: PCP Family Medicine; Visit Provider Ophthalmology
PROC: (CPT 66821; principal; 2024-10-08 09:00)
DX: H26.493 Other secondary cataract, bilateral (principal)
CPT/HCPCS: 66821

== ENCOUNTER 2024-10-09 13:00 | Outpatient (RCR) | payer MEDICARE, OTHER, SELFPAY ==
--- NOTE | 2024-10-02 14:54 | HMH.PTOPEV ---
PT Outpatient Evaluation Rehab PT Outpatient Evaluation Start: 10/02/24 12:58 Freq: Status: Active Protocol: Document 10/02/24 12:58 TSERING (Rec: 10/02/24 14:54 TSERING [id number]) E-signed By Annie Pitts, PT Outpatient Therapy Subjective History Subjective History Pt is a 64 y/o female who reports insidious onset of bilateral L>R posterior hip pain 2 weeks ago without known trauma or injury. Pt had a lumbar spine radiograph on with impression of Advanced degenerative narrowing of the L4-5 disc with grade 1 spondylolisthesis of the L4-5 level. Moderate facet sclerosis of the lower lumbar spine. Mild convex curvature of the lumbar spine apex to the patient's right. Pt also had a L hip radiograph on 09/19/24 without significant findings. Pt reports she was prescribed methocarbamol and had a massage Monday which helped improve initial symptoms. Pt reports current symptoms of posterior hip pain she describes as a spasm that is worse in the morning time especially with bed mobility and in the first few hours of the day. Pt also reports numbness/tingling of the left posterior hip to the mid calf region that occurs constantly with weightbearing activities and improves when lying down. Pt denies b/b dysfunction. Pt also reports pain is aggravated by prolonged sitting, sitting on a hard surface, and walking. Pt reports prior to onset of pain she was active and walking 3- 4 miles daily. Medical History: Hypertension, Bradycardia New diagnosis of cancer in past 12 No months? Chief Complaint Pain,Spasms Symptom Type Ache,Dull,Numbness,Tingling Symptoms Relieved By Prescription Meds Symptoms Aggravated By Physical Activity,Twisting, Walking Current Functional Limitations Recreation Activity,Walking Symptom Description Intermittent Level of pain today (0-10) 0 Pain scale - at its best (0-10) 0 Pain scale - at its worst (0-10) 10 Lumbopelvic Eval Posture Lumbar Spine Posture Standing Position Neutral Assistive device Assistive Devices None / NA Palapation tenderness left buttock tenderness Yes: greater trochanter 2/4 TTTP Lumbar/Sacral Palpation Findings Tenderness Range of Motion Lumbar Spine Active Flexion Range of 70 Motion (degrees) Lumbar Spine Active Extension Range of 20 Motion (degrees) Left Lumbar Spine Lateral Flexion Active 20 Range of Motion (degrees) Right Lumbar Spine Lateral Flexion 20 Active Range of Motion (degrees) Manual Muscle Test Left Knee Extension Strength Grade 5 Normal Knee Flexion Strength Grade 5 Normal Hip Flexion Strength Grade 4- Good- Hip Abduction Strength Grade 4- Good- Hip Adduction Strength Grade 4- Good- Hip Extension Strength Grade 4- Good- Ankle Dorsiflexion Strength Grade 5 Normal Altered Sensation Bilateral Comment equal and intact to light touch sensation bilaterally Special Tests Hip Josafat (EDMUND) Test Negative Right,Positive Left Hip Piriformis Test Negative Right,Positive Left Sciatic Nerve Tension Test Negative Left,Negative Right Unilateral Straight Leg Raise (Lasegue) Negative Left,Negative Right Test Hip/Knee Eval ROM left Hip External Rotation Active Range of 30 Motion (degrees) Hip Internal Rotation Active Range of 45 Motion (degrees) Lower Extremity Functional Index Activities Today, do you or would you have any difficulty at all with: a.Any of your usual work, housework or No difficulty school activities b. Your usual hobbies, recreational or A little bit of difficulty sporting activities c. Getting into or out of the bath No difficulty d. Walking between rooms No difficulty e. Putting on your shoes or socks A little bit of difficulty f. Squatting Quite a bit of difficulty g. Lifting an object, like a bag of No difficulty groceries from the floor h. Performing light activities around No difficulty your home i. Performing heavy activities around No difficulty your home j. Getting into or out of a car No difficulty k. Walking 2 blocks No difficulty l. Walking a mile No difficulty m. Going up or down 10 stairs (about 1 No difficulty flight of stairs) n. Standing for 1 hour No difficulty o. Sitting for 1 hour A little bit of difficulty p. Running on even ground No difficulty q. Running on uneven ground No difficulty r. Making sharp turns while running fast No difficulty s. Hopping No difficulty t. Rolling over in bed Extreme difficulty or unable to perform activity LEFI Score Lower Extremity Functional Index Score 70 Outpatient Therapy Assessment Impairments Problems/Impairmments Palpation Tenderness,Impaired Range of Motion,Impaired Strength,Impaired Transfers, Impaired Walking,Subjective C/ O Pain,Impaired Self Care/Self Management Prognosis Rehab Potential Good Clinical Impression Consistent with Diagnosis Yes Short Term Goals Number of Weeks 2 Decrease Subjective C/O Pain Yes: Improve pain at worst to 8/10 to improve overall QOL Improve Self Care/Self Management Yes Patient to be Ind w/ HEP Yes Helper [employer]isher Goals Number of Weeks 4-6 Increase Range of Motion Yes: Improve L hip ER to at least 35-40 Increase Strength Yes: Improve LLE MMT to 4-4+/5 grossly to assist with function Improve Transfers Yes: perform bed mobility without pain Increase Ability to Walk Yes: report ability to walk 3mi without pain to assist with return to PLOF Improve LEFI Score Yes: Improve score to at least 75 to improve overall QOL Decrease Subjective C/O Pain Yes: Improve pain at worst to 6/10 or less to assist with function Outpatient Therapy Plan of Care Treatment Plan May Include Therapeutic Exercise Including Home Yes Exercise Program Manual Therapy Techniques Yes Neuromuscular Re-education Yes Therapeutic Activities to Return to Yes Previous Functional/Work Level ADL/Self Care Education Yes Mechanical Traction Yes Dry Needling Yes Thermal Modalities Yes Electrical Stimulation Yes Ultrasound/Phonophoresis Yes Iontophoresis Yes Massage Yes Group Therapy for Medicare Yes Eval/Re-Eval Yes Frequency Times per week 2 Duration Number of Weeks 4-6 Addendums This patient is a candidate for social No or vocational rehab? Patient/Guardian verbally acknowledges Yes understanding of treatment program and consents to further treatment? Patient/Guardian verbally acknowledges Yes understanding of diagnosis, prognosis and goals for treatment? Eval Complexity PT Charges 55968 - Low Complexity Shoulder/Elbow Eval Shoulder Objective Measurements Elbow Objective Measurements PHYSICIAN CERTIFICATION: I certify the specified therapy services for Leela Oneil are required, authorized, and reviewed every 30 days.
== END 2024-10-09 23:59 | disposition home or self-care (01) ==
LOC: PT 13:00
PROVIDERS: Visit Provider Physician Assistant
DX: G57.02 Lesion of sciatic nerve, left lower limb (principal); M79.18 Myalgia, other site
CPT/HCPCS: 97110; 97163

== ENCOUNTER 2024-12-13 08:16 | Outpatient (CLI) | payer MEDICARE, OTHER, SELFPAY ==
--- NOTE | 2024-12-13 08:19 | MM_ITS ---
PROCEDURE INFORMATION: Exam: MG Bilateral Screening 3D Mammography Exam date and time: 12/13/2024 8:32 AM Age: 64 years old Clinical indication: Screening examination TECHNIQUE: Imaging protocol: Bilateral Screening tomosynthesis and 2D mammography including computer-aided detection (CAD) when performed. COMPARISON: 1. MG MM DIG SCREENING MAMM BI W/CAD 12/11/2023 7:55 AM 2. MG MM DIG SCREENING MAMM BI W/CAD 11/10/2022 8:33 AM FINDINGS: MAMMOGRAPHY: Breast composition: There are scattered areas of fibroglandular density. Mass: No suspicious masses. Architectural distortion: None. Calcifications: No suspicious calcifications. Asymmetric density: None. Skin thickening: None. Axillary adenopathy: None. IMPRESSION: No mammographic evidence of malignancy. Annual screening is recommended unless otherwise clinically indicated. ASSESSMENT: BI-RADS Category 1: Negative.
== END 2024-12-13 23:59 | disposition home or self-care (01) ==
LOC: RAD 08:17
PROVIDERS: PCP Family Medicine; Visit Provider Family Medicine
DX: Z12.31 Encounter for screening mammogram for malignant neoplasm of breast (principal)
CPT/HCPCS: 77063; 77067

== ENCOUNTER 2025-09-15 12:31 | Day surgery (SDC) | payer MEDICARE, SELFPAY ==
--- NOTE | 2025-09-11 17:21 | EXP.HP ---
History of Present Illness *Admission Date: 09/15/25 *History of present illness: Mrs. Oneil is a 65-year-old female who is here for screening/surveillance colonoscopy. The patient does have a personal history of adenomatous colon polyps. She had a colonoscopy in April 2017 and had an advanced adenomatous polyp (tubular adenoma with focal high-grade dysplasia) which was removed. Her colonoscopy in June 2018 revealed a single benign smaller tubular adenoma) which was removed. The patient's last colonoscopy was with Dr. Adrian Ruiz MD at [facility] in August 2022 and the bowel preparation was only fair in quality and he had recommended repeat screening/surveillance colonoscopy in 3 years. At that time the visualized colon was normal. The examination is deemed medically necessary for screening/surveillance colonoscopy. The patient has been seen, interviewed and examined prior to the procedure by both myself and the anesthesia provider. [facility] Disclaimer: The information contained in this section may have been updated after the patient was seen, as this information can be updated by other users. Medical History Impacted cerumen of left ear Hx of fracture of ankle right History of cataract Surgical History Hx of hysterectomy Family History Father Family history of cancer Other Family history of diabetes mellitus Family history of high cholesterol Family history of hypertension Social History Smoking Status: Never smoker second hand exposure: No alcohol intake: never substance use type: denies use current occupational status: employed and disabled Travel in the last 8 weeks?: Inside the [facility] household members: none housing: house lives independently: Yes marital status: single current occupational exposures/hazards: No caffeine: Yes special magdy needs: No agree to transfusion: No do you feel safe at home: Yes victim of physical abuse: No victim of emotional abuse: No victim of sexual abuse: No would you like helpful sources: No Other Medical History Have you received the Flu Vaccine for this season: Yes Have you received the Pneumonia Vaccine: Yes Review of Systems Review of Systems Review of systems (narrative): Negative *Cardiovascular Comments: Negative *Gastrointestinal Comments: Negative *Genitourinary Comments: Negative *Musculoskeletal Comments: Negative *Neurologic Comments: Negative Meds Home Medications and Allergies Home Medications ?Medication ?Instructions ?Recorded ?Confirmed ?Type amlodipine 2.5 mg tablet (Norvasc) 2.5 mg PO DAILY bp #90 tabs 09/14/23 09/12/25 Rx lisinopril 20 1 tab PO DAILY bp #90 tabs 09/14/23 09/12/25 Rx mg-hydrochlorothiazide 12.5 mg tablet rosuvastatin 20 mg tablet 20 mg PO DAILY Cholesterol #90 tabs 09/14/23 09/12/25 Rx sodium,potassium,mag sulfates 17.5 See Rx Instructions PO .COMPLEX 08/28/25 Rx gram-3.13 gram-1.6 gram oral soln #354 mL (Suprep Bowel Prep Kit) New Prescriptions to Start Prescriptions: Allergies Allergy/AdvReac Type Severity Reaction Status Date / Time orphenadrine (From [employer]) Allergy Intermediate I-RASH Verified 09/12/25 12:07 Exam *Routine HEENT Exam Head: Present normocephalic Eye: Present EOMI and PERRL ENT: Present mucous membranes moist *Routine Neck Exam Neck: Present supple *Routine Respiratory Exam Respiratory: Present CTA bilaterally *Routine Cardiovascular Exam Cardiovascular: Present RRR *Routine Abdominal Exam Abdominal: Present soft and normoactive bowel sounds; Absent tenderness *Routine Rectal Exam Rectal:: deferred *Routine Genitalia Exam Genitalia:: deferred *Routine Extremities Exam Extremities: Absent cyanosis, clubbing or edema *Routine Skin Exam Skin: Present warm; Absent rash *Routine Neurological Exam Neurological: Present alert and oriented X3 Assessment and Plan *Assessment and plan (1) Personal history of adenomatous and serrated colon polyps: Status: Acute Category: Medical Code(s): Z86.0101 - Personal history of adenomatous and serrated colon polyps (2) Screening for colon cancer: Status: Acute Category: Medical Code(s): Z12.11 - Encounter for screening for malignant neoplasm of colon Plan A/P: 1. Personal history of adenomatous colon polyps with prior adenoma with high-grade dysplasia is the preprocedural diagnosis. The patient will be anesthetized/sedated using MAC sedation. The patient has been seen and examined. Cardiac and lung assessment prior to the examination is stable. Proceed with planned screening/surveillance colonoscopy.
[2025-09-12 12:09] VITALS: BMI 28.1
--- NOTE | 2025-09-15 07:02 | P.PCN_ITS ---
[facility] Procedure Note Date: 09/15/25 Procedure Note:: Colonoscopy Procedure Report: Colonoscopy [] Endoscopist: Camron Marie II, MD Referring physician: [] Date of Procedure: September 15, 2025 Equipment: Olympus [id number] adult colonoscope Sedation: MAC sedation Indication: Mrs. Oneil is a 65-year-old female who is here for screening/surveillance colonoscopy. The patient does have a personal history of adenomatous colon polyps. She had a colonoscopy in April 2017 and had an advanced adenomatous polyp (tubular adenoma with focal high-grade dysplasia) which was removed. Her colonoscopy in June 2018 revealed a single benign smaller tubular adenoma) which was removed. The patient's last colonoscopy was with Dr. Adrian Ruiz MD at [facility] in August 2022 and the bowel preparation was only fair in quality and he had recommended repeat screening/surveillance colonoscopy in 3 years. At that time the visualized colon was normal. The examination is deemed medically necessary for screening/surveillance colonoscopy. Procedure: Prior to the procedure, a history and physical exam was performed, and patient's medications and allergies were reviewed. The risks, benefits and alternatives of the sedation and procedure were discussed with the patient. All questions were answered and informed consent was obtained. The patient was brought to the procedure room. Patient identification and proposed procedure were verified by the physician and the nurse. The patient was placed in a left lateral decubitus position and the scope was passed under direct vision. Throughout the procedure, the patient's blood pressure, pulse, and oxygen saturations were monitored continuously. The colonoscopy was accomplished without difficulty. The patient tolerated the procedure well. Findings: [] Impression: 1. [] Plan: []
--- NOTE | 2025-09-15 12:34 | P.HP_ITS ---
History of Present Illness *Admission Date: 09/15/25 *History of present illness: Mrs. Oneil is a 65-year-old female who is here for screening/surveillance colonoscopy. The patient did have a colonoscopy in April 2017 and had an advanced adenomatous polyp (tubular adenoma with focal high-grade dysplasia) removed from the descending colon. 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 Her last colonoscopy was with Dr. Adrian Ruiz in August 2022 and the examination was reported as normal but the preparation was only fair. It was recommended to have repeat screening/surveillance colonoscopy in 3 years. The examination is deemed medically necessary for screening/surveillance colonoscopy. The patient has been seen, interviewed and examined prior to the procedure by both myself and the anesthesia provider. [facility] Disclaimer: The information contained in this section may have been updated after the patient was seen, as this information can be updated by other users. Medical History Impacted cerumen of left ear Hx of fracture of ankle History of cataract Surgical History Hx of hysterectomy Family History Father Family history of cancer Other Family history of diabetes mellitus Family history of high cholesterol Family history of hypertension Social History Smoking Status: Never smoker second hand exposure: No alcohol intake: never substance use type: denies use current occupational status: employed and disabled Travel in the last 8 weeks?: Inside the [place] household members: none housing: house lives independently: Yes marital status: single current occupational exposures/hazards: No caffeine: Yes special magdy needs: No agree to transfusion: No do you feel safe at home: Yes victim of physical abuse: No victim of emotional abuse: No victim of sexual abuse: No would you like helpful sources: No Have you lived/traveled outside [place] in past 30 days?: No Contact w/someone who lives/traveled outside US past 30 days?: No Exposure to someone with infectious disease in past 14 days?: No Do you have a fever (greater than 100.4 F or 38 C)?: No Have you tested positive for COVID-19?: No Exposed to someone with COVID-19 in past 14 days?: No Do you have a sore throat?: No Do you have a cough?: No Do you have any weakness?: No Do you have any diarrhea?: No Are you experiencing any unusual bleeding?: No Do you have any muscle aches/pain?: No Do you have any abdominal pain?: No Are you experiencing loss of taste or smell?: No Other Medical History Have you received the Flu Vaccine for this season: Yes Have you received the Pneumonia Vaccine: Yes Review of Systems Review of Systems Review of systems (narrative): Negative *Cardiovascular Comments: Negative *Gastrointestinal Comments: Negative *Genitourinary Comments: Negative *Musculoskeletal Comments: Negative *Neurologic Comments: Negative Meds Home Medications and Allergies Home Medications ?Medication ?Instructions ?Recorded ?Confirmed ?Type amlodipine 2.5 mg tablet (Norvasc) 2.5 mg PO DAILY bp #90 tabs 09/14/23 09/15/25 Rx lisinopril 20 1 tab PO DAILY bp #90 tabs 1 11/14/22 09/15/25 Rx mg-hydrochlorothiazide 12.5 mg tablet rosuvastatin 20 mg tablet 20 mg PO DAILY Cholesterol # 90 tabs 09/14/23 09/15/25 Rx New Prescriptions to Start Prescriptions: Allergies Allergy/AdvReac Type Severity Reaction Status Date / Time orphenadrine (From NORFLEX) Allergy Intermediate I-RASH Verified 09/15/25 12:43 Exam Data for Last 24 hours I & O for Last 24 hours: Intake & Output 09/12/25 09/13/25 09/14/25 09/15/25 23:59 23:59 23:59 23:59 Weight 159 lb *Routine HEENT Exam Head: Present normocephalic Eye: Present EOMI and PERRL ENT: Present mucous membranes moist *Routine Neck Exam Neck: Present supple *Routine Respiratory Exam Respiratory: Present CTA bilaterally *Routine Cardiovascular Exam Cardiovascular: Present RRR *Routine Abdominal Exam Abdominal: Present soft and normoactive bowel sounds; Absent tenderness *Routine Rectal Exam Rectal:: deferred *Routine Genitalia Exam Genitalia:: deferred *Routine Extremities Exam Extremities: Absent cyanosis, clubbing or edema *Routine Skin Exam Skin: Present warm; Absent rash *Routine Neurological Exam Neurological: Present alert and oriented X3 Assessment and Plan *Assessment and plan (1) Screening for colon cancer: Status: Acute Category: Medical Code(s): Z12.11 - Encounter for screening for malignant neoplasm of colon (2) Personal history of adenomatous and serrated colon polyps: Status: Acute Category: Medical Code(s): Z86.0101 - Personal history of adenomatous and serrated colon polyps (3) High grade dysplasia in colonic adenoma: Status: Acute Category: Medical Code(s): D12.6 - Benign neoplasm of colon, unspecified Plan A/P: 1. Personal history of adenomatous colon polyp with an adenoma having focal high-grade dysplasia in 2018 is the preprocedural diagnosis. The patient will be anesthetized/sedated using MAC sedation. The patient has been seen and examined. Cardiac and lung assessment prior to the examination is stable. Proceed with planned screening/surveillance colonoscopy.
--- NOTE | 2025-09-15 12:38 | HMH.PROCNOTE ---
[facility] Procedure Note Date: 09/15/25 Time: 13:28 Procedure Note:: Colonoscopy Procedure Report: Colonoscopy Endoscopist: Camron Marie II, MD Referring physician: Giovany Kennedy MD Date of Procedure: September 15, 2025 Equipment: Olympus [id number] adult colonoscope Sedation: MAC sedation Indication: Mrs. Oneil is a 65-year-old female who is here for screening/surveillance colonoscopy. The patient did have a colonoscopy in April 2017 and had an advanced adenomatous polyp (tubular adenoma with focal high-grade dysplasia) removed from the descending colon. 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 Her last colonoscopy was with Dr. Adrian Ruiz in August 2022 and the examination was reported as normal but the preparation was only fair. It was recommended to have repeat screening/surveillance colonoscopy in 3 years. The patient reports no abdominal pain, weight loss, change in her bowel habits or rectal bleeding. She reports no family history of colon cancer. The patient does support regular bowel function with dietary fiber, water/fluid intake and exercise. The examination is deemed medically necessary for screening/surveillance colonoscopy. Procedure: Prior to the procedure, a history and physical exam was performed, and patient's medications and allergies were reviewed. The risks, benefits and alternatives of the sedation and procedure were discussed with the patient. All questions were answered and informed consent was obtained. The patient was brought to the procedure room. Patient identification and proposed procedure were verified by the physician and the nurse. The patient was placed in a left lateral decubitus position and the scope was passed under direct vision. Throughout the procedure, the patient's blood pressure, pulse, and oxygen saturations were monitored continuously. The colonoscopy was accomplished without difficulty. The patient tolerated the procedure well. Findings: On digital rectal examination there was normal rectal tone. There were no external hemorrhoids. The colonoscope was introduced through the anal canal to the rectum and advanced to the cecum. The ileocecal valve and appendiceal orifice were identified. The scope was advanced a short distance into the ileum which appeared grossly normal. The scope was then withdrawn into the colon. The cecum, ascending, transverse, descending, sigmoid and rectum were grossly normal. There were no mucosal abnormalities identified. Upon retroflexion within the rectum there were grade 1-2 internal hemorrhoids. The preparation was good throughout with [place] Preparation Score of 8 out of 9. The cecal time was 12 minutes. Impression: 1. Normal colonoscopy with intubation of the terminal ileum Plan: The patient will not require screening/surveillance colonoscopy again for 10 years per ACS guidelines.
[2025-09-15 12:43] VITALS: BP 135/69; PULSE 43; RESP 18; TEMP 36.1; O2SAT 100
[2025-09-15] MEDS: LACTATED RINGERS 1000ML 1,000 ML 50 ML IV (12:52)
--- NOTE | 2025-09-15 12:57 | P.PNANES_ITS ---
[facility] Disclaimer: The information contained in this section may have been updated after the patient was seen, as this information can be updated by other users. Medical History Impacted cerumen of left ear Hx of fracture of ankle History of cataract Surgical History Hx of hysterectomy Family History Father Family history of cancer Other Family history of diabetes mellitus Family history of high cholesterol Family history of hypertension Social History Smoking Status: Never smoker second hand exposure: No alcohol intake: never substance use type: denies use current occupational status: employed and disabled Travel in the last 8 weeks?: Inside the [place] household members: none housing: house lives independently: Yes marital status: single current occupational exposures/hazards: No caffeine: Yes special magdy needs: No agree to transfusion: No do you feel safe at home: Yes victim of physical abuse: No victim of emotional abuse: No victim of sexual abuse: No would you like helpful sources: No Have you lived/traveled outside [place] in past 30 days?: No Contact w/someone who lives/traveled outside [place] past 30 days?: No Exposure to someone with infectious disease in past 14 days?: No Do you have a fever (greater than 100.4 F or 38 C)?: No Have you tested positive for COVID-19?: No Exposed to someone with COVID-19 in past 14 days?: No Do you have a sore throat?: No Do you have a cough?: No Do you have any weakness?: No Do you have any diarrhea?: No Are you experiencing any unusual bleeding?: No Do you have any muscle aches/pain?: No Do you have any abdominal pain?: No Are you experiencing loss of taste or smell?: No [facility] Anesthesia Checklist Patient Identification Patient Identification: Arm Band and Verbal (Name & ) Structural Data Admitted From: Home Planned Operative Procedure/s: colonscopy Consent for Planned Operative Procedure(s) Verified: Yes Verified Documents: Surgical Consent and History and Physical NPO Status Verified Time NPO: 00:00 Additional verifications Anesthesia Reactions: No Hx Blood Transfusions: No Blood Transfusion Reaction: No Previous Colonoscopy: Yes Airway Assessment Mallampati Score:: Class II Neurological Assessment Level of Consciousness: Awake, Alert and Appropriate Hx Seizures: No Numbness or tingling in extremities: No Anesthesia Plan Anesthesia Risk discussed: Yes Anesthesia Plan: Verified ASA Class: II Anesthesia Type: MAC
[2025-09-15 13:29] VITALS: BP 102/38; PULSE 48; RESP 15; TEMP 36.3; O2SAT 98
[2025-09-15 13:39] VITALS: BP 96/58; PULSE 40; RESP 17; TEMP 36.3; O2SAT 99
[2025-09-15 13:49] VITALS: BP 115/63; PULSE 40; RESP 17; TEMP 36.3; O2SAT 99
[2025-09-15 13:59] VITALS: BP 133/64; PULSE 38; RESP 18; TEMP 36.3; O2SAT 99
== END 2025-09-15 14:10 | disposition home or self-care (01) ==
PROVIDERS: PCP Family Medicine; Visit Provider Internal Medicine Gastroenterology
PROC: 0DJD8ZZ Inspection of Lower Intestinal Tract, Via Natural or Artificial Opening Endoscopic (ICD-10-PCS; CPT 45378; principal; 2025-09-15 14:00)
DX: Z12.11 Encounter for screening for malignant neoplasm of colon (principal); K64.0 First degree hemorrhoids; K64.1 Second degree hemorrhoids; D12.6 Benign neoplasm of colon, unspecified; Z86.0101 Personal history of adenomatous and serrated colon polyps; Z88.8 Allergy status to other drugs, medicaments and biological substances
CPT/HCPCS: 45378; J2003; J2704; J7120